=== PATIENT | female | born 1975 | race Caucasian/White ===

== ENCOUNTER 2022-07-25 11:00 | Inpatient (IN) ==
--- NOTE | 2022-07-25 11:17 | DR.GENAD ---
HPI Time Seen Time Seen by Provider: 07/25/22 11:17 PCP Primary Care Physician: TL JONES PA-C Complaint/Symptoms Chief Complaint Doctors Comments: 46 y/o female presents for evlauation. [place] constipated this am, used an enema. Moved her bowels a bit, but had sudden, severe pain of the perineal region, + associated with R labial swelling. Pain is sharp, constant, dies not radiate. + worse with palpation, movement. Nothing makes it better. Denies recent illness. No fever, URI symptoms, bladder complaints. + nausea, no vomiting. Chief Complaint:: PT C/O CHRONIC CONSTIPATION. LAST BM WAS ON SUNDAY. PT STATES THAT SHE GAVE HERSELF A FLEETS ENEMA THIS MORNING AROUND 8AM AND DID HAVE A VERY SMALL BM BUT AFTER THIS SHE FELT LIKE SHE HAD A SUDDEN ONSET OF SEVERE SWELLING AND PAIN INTO HER RECTUM AND VAGINAL AREA. PT STATES THAT HER PAIN IS SO SEVERE THAT SHE CAN'T CLOSE HER LEGS OR SIT DOWN. COVID-19 Coronavirus risk:travel/contact w/high risk person: No Has patient experienced Coronavirus symptoms: No Nurses notes reviewed Nurses Notes Review: Yes Source History Provided: Patient Mode of Arrival Mode of Arrival: Ambulatory Timing Onset of Chief Complaint: 07/25/22 PMH PMH Past Medical History: Yes Past Medical History: Diabetes Past Surgical History: Yes Surgical History: Cholecystectomy Past Surgical History Comment: UTERINE ABLATION, TUBAL LIGATION Family History History of Family Medical Conditions: Yes Family Medical History: Diabetes Mellitus and Hypertension Social History Does patient currently use any type of tobacco product: No Have you used tobacco products in the last 12 months: No Type of Tobacco Use: None Does any household member use tobacco: No Alcohol Use: None Do you use any recreational Drugs:: No Lives With: Family Lives Where: Home Travel Risk Coronavirus risk:travel/contact w/high risk person: No Has patient experienced Coronavirus symptoms: No Infectious screening In the last 2 months have you had wt loss of >10#?: NO Have you had fever, night sweats or hemotysis?: No Have you traveled outside the country in the last 6 months?: No Isolation: Standard ROS Review of Systems Constitutional: No Symptoms Reported Eyes: No Symptoms Reported ENTM: No Symptoms Reported Respiratoy: No Symptoms Reported Cardiovascular: No Symptoms Reported Gastrointestinal/Abdominal: Nausea Genitourinary: No Symptoms Reported Neurological: No Symptoms Reported Musculoskeletal: No Symptoms Reported Integumentary: No Symptoms Reported Hematologic/Lymphatic: No Symptoms Reported Psychiatric: No Symptoms Reported All Other Systems: Reviewed and Negative PE Vital Signs Vitals: Temperature 98.1 F Pulse Rate 132 Respiratory Rate 20 Blood Pressure [Right Arm] 122/74 Blood Pressure 112/77 O2 Sat by Pulse Oximetry 100 General General Appearance: Alert and Other (appears uncomfortable.) Eyes Eye exam: PERRL and EOMI Neck Neck Exam: Normal Inspection Respiratory Respiratory Exam: Normal Lung Sounds Bilat; negative Accessory Muscle Use or Respiratory Distress Cardiovascular Cardiovascular Exam: Regular Rate, Normal Rhythm and Normal Heart Sounds Abdominal Exam Abdominal Exam: Normal Bowel Sounds and Soft; negative Tenderness Extremities Extremities Exam: Normal Inspection; negative Edema Back Back Exam: Normal Inspection Neurologic Neurological Exam: Alert, Oriented X3 and CN II-XII Intact; negative Motor Sensory Deficit Skin Skin Exam: Warm and Dry Other Exam Other Exam: External genitalia - + marked edema pf the R labial majora, with tenderness of the perineum. Rectal - + ring of small ext hemorrhoids, + rectal impaction at fingertip, unable to manually remove. COURSE Treatment Treatment: 46 y/o female, felt constipated. Took an enema, tried to move bowels. + sudden R labial swelling, perineal discomfort. W/u initiated. 1345 - WBC elev ated to [address] abd/pelvis shows rectal impaction to be present. 1432 - CT c/w proctitis. Rectal exam - can barely reach impaction with finger, unable to manually disimpact. Discussed with surgery, Dr Baumann. He will consult on pt, may have to take to OR for disimpaction. Will place on IV antibiotics, admit to medicine (note: pt's medical provider does not admit here), and consult with Dr Baumann. ROR Labs Reviewed Laboratory Results Reviewed?: Yes Result Diagrams: 07/25/22 11:38 07/25/22 11:38 Laboratory: WBC 16.4 X10^3/uL (3.6-10.0) H 07/25/22 11:38 RBC 4.87 X10^6/uL (3.5-5.4) 07/25/22 11:38 Hgb 15.3 g/dL (12.0-16.0) 07/25/22 11:38 Hct 44.6 % (36.0-47.0) 07/25/22 11:38 MCV 91.5 fL (80.0-100.0) 07/25/22 11:38 MCH 31.4 pg (27.0-34.0) 07/25/22 11:38 MCHC 34.3 g/dL (33.0-35.0) 07/25/22 11:38 RDW 13.2 % (11.6-16.5) 07/25/22 11:38 Plt Count 296 X10^3/uL (150.0-450.0) 07/25/22 11:38 Plt Count Comment Adequate (ADEQUATE) 07/25/22 11:38 MPV 7.3 fL (7.4-11.0) L 07/25/22 11:38 Neut % (Auto) 92.7 % (42.0-75.0) H 07/25/22 11:38 Lymph % (Auto) 4.2 % (21.0-51.0) L 07/25/22 11:38 [place] % (Auto) 2.8 % (0.0-13.0) 07/25/22 11:38 Eos % (Auto) 0.2 % (0.9-2.9) L 07/25/22 11:38 Baso % (Auto) 0.1 % (0.2-1.0) L 07/25/22 11:38 Neut # (Auto) 15.2 x10^3/uL (2.2-4.8) H 07/25/22 11:38 Lymph # (Auto) 0.7 X10^3/uL (1.3-2.9) L 07/25/22 11:38 [place] # (Auto) 0.5 x10^3/uL (0.3-0.8) 07/25/22 11:38 Eos # (Auto) 0.0 x10^3/uL (0.0-0.2) 07/25/22 11:38 Baso # (Auto) 0.0 X10^3/uL (0.0-0.1) 07/25/22 11:38 Absolute Nucleated RBC 0.0 /100WBC 07/25/22 11:38 Total Counted 100 07/25/22 11:38 Neutrophils % (Manual) 98 % (39-76) H 07/25/22 11:38 Lymphocytes % (Manual) 2 % (13-43) L 07/25/22 11:38 Plt Morphology Comment Normal (NORMAL) 07/25/22 11:38 RBC Morphology Normal (NORMAL) 07/25/22 11:38 Sodium 140 mmol/L (136-145) 07/25/22 11:38 Corrected Sodium 142 mmol/L (136-145) 07/25/22 11:38 Potassium 3.2 mmol/L (3.5-5.1) L 07/25/22 11:38 Chloride 102 mmol/L (98-107) 07/25/22 11:38 Carbon Dioxide 29.1 mmol/L (21-32) 07/25/22 11:38 BUN 14 mg/dL (7-18) 07/25/22 11:38 Creatinine 0.73 mg/dL (0.55-1.02) 07/25/22 11:38 Est GFR (MDRD) Af Amer > 60 (>60) 07/25/22 11:38 Est GFR (MDRD) Non-Af > 60 (>60) 07/25/22 11:38 Glucose 164 mg/dL (65-99) H 07/25/22 11:38 Calcium 8.3 mg/dL (8.5-10.1) L 07/25/22 11:38 Corrected Calcium TNP 07/25/22 11:38 Total Bilirubin 0.40 mg/dL (0.2-1.0) 07/25/22 11:38 AST 25 Units/L (15-37) 07/25/22 11:38 ALT 53 Units/L (12-78) 07/25/22 11:38 Alkaline Phosphatase 65 Units/L (46-116) 07/25/22 11:38 Total Protein 7.6 g/dL (6.4-8.2) 07/25/22 11:38 Albumin 4.2 g/dL (3.4-5.0) 07/25/22 11:38 Globulin 3.4 g/dL (2.5-4.5) 07/25/22 11:38 Albumin/Globulin Ratio 1.2 Ratio (1.1-2.1) 07/25/22 11:38 Opioid Opioid Risk Tool Age (Rei box if 16-45): No History of Preadolescent Sexual Abuse: No Total: 0 Total Score Risk Category: Low Risk Copyright: Michele VAUGHN predicting aberrant behaviors Discharge Plan Diagnosis Discharge Problem: Acute proctitis, Fecal impaction in rectum Discharge Plan Patient Disposition: 09 ADMITTED INPATIENT Condition: Stable Orders to Discharge Patient Discharge Orders: Transfer (Routine); Ordered 07/25/22 Ordered By: Alexander Guevara
[2022-07-25] MEDS ORDERED: NS 1,000 ML IV 1,000 ML IV ONE (11:29)
[2022-07-25] MEDS ORDERED: TORADOL 30 MG VIAL IVP ONE (11:29)
[2022-07-25] MEDS ORDERED: ZOFRAN INJ 4 MG VIAL IVP ONE ×2 (11:30→14:03)
[2022-07-25] MEDS ORDERED: TORADOL 30 MG VIAL ONE (11:30)
[2022-07-25] MEDS ORDERED: ZOFRAN INJ 4 MG VIAL ONE ×2 (11:31→13:59)
[2022-07-25] MEDS ORDERED: NS 1,000 ML IV 1,000 ML ONE (11:32)
[2022-07-25 11:53] LABS: BASOPHILS % (AUTO) 0.1 % (0.2-1.0); EOSINOPHILS % (AUTO) 0.2 % (0.9-2.9); HEMATOCRIT 44.6 % (36.0-47.0); HEMOGLOBIN 15.3 g/dL (12.0-16.0); LYMPHOCYTES # (AUTO) 0.7 X10^3/uL (1.3-2.9); LYMPHOCYTES % (AUTO) 4.2 % (21.0-51.0); MEAN CORPUSCULAR HEMOGLOBIN 31.4 pg (27.0-34.0); MEAN CORPUSCULAR HGB CONC 34.3 g/dL (33.0-35.0); MEAN CORPUSCULAR VOLUME 91.5 fL (80.0-100.0); MEAN PLATELET VOLUME 7.3 fL (7.4-11.0); MONOCYTES # (AUTO) 0.5 x10^3/uL (0.3-0.8); MONOCYTES % (AUTO) 2.8 % (0.0-13.0); NEUTROPHILS # (AUTO) 15.2 x10^3/uL (2.2-4.8); NEUTROPHILS % (AUTO) 92.7 % (42.0-75.0); PLATELET COUNT 296 X10^3/uL (150.0-450.0); RED BLOOD COUNT 4.87 X10^6/uL (3.5-5.4); RED CELL DISTRIBUTION WIDTH 13.2 % (11.6-16.5); WHITE BLOOD COUNT 16.4 X10^3/uL (3.6-10.0)
[2022-07-25 11:59] LABS: ALANINE AMINOTRANSFERASE 53 Units/L (12-78); ALBUMIN 4.2 g/dL (3.4-5.0); ALKALINE PHOSPHATASE 65 Units/L (46-116); ASPARTATE AMINO TRANSFERASE 25 Units/L (15-37); BLOOD UREA NITROGEN 14 mg/dL (7-18); CALCIUM 8.3 mg/dL (8.5-10.1); CARBON DIOXIDE 29.1 mmol/L (21-32); CHLORIDE 102 mmol/L (98-107); COR NA(FOR HYPERGLY) 142 mmol/L (136-145); CREATININE 0.73 mg/dL (0.55-1.02); GLUCOSE 164 mg/dL (65-99); POTASSIUM 3.2 mmol/L (3.5-5.1); SODIUM 140 mmol/L (136-145); TOTAL PROTEIN 7.6 g/dL (6.4-8.2); eGFR NON BLACK RACES > 60 (>60)
[2022-07-25 12:19] LABS: PLATELET MORPHOLOGY COMMENT NORMAL (NORMAL)
[2022-07-25] MEDS ORDERED: MORPHINE SULFATE INJ 4 MG IVP ONE (13:53)
[2022-07-25] MEDS ORDERED: MORPHINE SULFATE INJ 4 MG ONE (13:56)
--- NOTE | 2022-07-25 14:22 | CT ---
HISTORYPELVIC PAIN previous tubal ligationSTUDYABDOMEN/PELVIS WITH CONCOMPARISONNoneTECHNIQUEMultiple CT axial images of the abdomen and pelvis were obtained with IV contrast. Coronal and sagittal images were reconstructed. Dose reduction techniques included Automated Exposure Control (AEC) and adjustment of mA and kV.FINDINGSThe rectal wall is thickening in there is a large amount of perirectal edema in the presacral space and the ischiorectal fossa. Findings suggest proctitis. No fluid collection to suggest an abscess.I believe the uterus in the bladder which are in this same vicinity are normal. There are surgical clips from bilateral tubal ligation.The bowel is not dilated. There is no wall thickening in the bowel or edema around the bowel. The appendix is normal in size with no inflammation around it. No evidence of appendicitis. There is no significant diverticular disease.The lung bases are clear. Heart size is normal.The liver is normal in size and configuration. Surgical clips are present in the gallbladder fossa from a cholecystectomy. The spleen is normal in size and shape.The adrenal glands are normal. The pancreas is normal.Renal enhancement is symmetric with no solid mass. There is no hydronephrosis or significant perirenal edema. The ureters are not dilated.No significant bone abnormality. Tiny umbilical hernia contains fat.IMPRESSION1. Findings suggesting acute proctitisElectronically signed by: Clayton Greco (Jul 25, 2022 14:20:43)
[2022-07-25] MEDS ORDERED: FLAGYL IV PREMIX 500 MG BAG 500 MG/100 ML BAG IV ONE ×2 (15:11→15:21)
[2022-07-25] MEDS ORDERED: LEVAQUIN PREMIX IV 750 MG 750 MG/150 ML BAG IV ONE ×2 (15:11→15:21)
[2022-07-25] MEDS ORDERED: MORPHINE SULFATE INJ 4 MG IVP PRN (16:54)
[2022-07-25] MEDS ORDERED: FLAGYL IV PREMIX 500 MG BAG 500 MG/100 ML BAG IV SCH (16:54)
[2022-07-25 17:16] VITALS: BMI 25.0
[2022-07-25] MEDS: D5 1/2 NS 1,000 ML 1,000 ML IV SCH (17:52)
[2022-07-25] MEDS ORDERED: POTASSIUM CHL 40 MEQ/NS 0.45% 500 ML IV PRN (18:55)
[2022-07-25] MEDS ORDERED: POTASSIUM CHLORIDE LIQ 20 MEQ UDC PO PRN (18:55)
[2022-07-25] MEDS ORDERED: MAGNESIUM SULFATE 1 GRAM/100 mL PREMIX 1 G/100 ML BAG IV PRN (18:55)
[2022-07-25] MEDS ORDERED: MICRO K EXTEN CAP 10 MEQ PO PRN (18:55)
[2022-07-25] MEDS ORDERED: KLOR-CON PO PRN (18:55)
[2022-07-25] MEDS ORDERED: POTASSIUM CHL 60 MEQ/NS 0.45% 500 ML IV PRN (18:55)
[2022-07-25] MEDS: FLAGYL IV PREMIX 500 MG BAG 500 MG/100 ML BAG IV SCH (21:39)
[2022-07-25] MEDS: AMBIEN PO PRN (21:40)
[2022-07-25] MEDS: K-DUR TAB 20 MEQ PO PRN (21:40)
[2022-07-25] MEDS: ZOFRAN INJ 4 MG VIAL IVP PRN (21:40)
[2022-07-25] MEDS: MORPHINE SULFATE INJ 2 MG INJ IVP PRN (23:03)
[2022-07-26] MEDS: D5 1/2 NS 1,000 ML 1,000 ML IV SCH ×5 (01:59→22:47)
[2022-07-26] MEDS: MORPHINE SULFATE INJ 2 MG INJ IVP PRN (03:17)
[2022-07-26] MEDS: ZOFRAN INJ 4 MG VIAL IVP PRN ×2 (03:17→13:10)
[2022-07-26] MEDS: FLAGYL IV PREMIX 500 MG BAG 500 MG/100 ML BAG IV SCH ×3 (06:07→21:44)
[2022-07-26 06:11] LABS: BASOPHILS % (AUTO) 0.1 % (0.2-1.0); HEMATOCRIT 36.2 % (36.0-47.0); LYMPHOCYTES # (AUTO) 1.3 X10^3/uL (1.3-2.9); LYMPHOCYTES % (AUTO) 9.2 % (21.0-51.0); MEAN CORPUSCULAR HEMOGLOBIN 31.5 pg (27.0-34.0); MEAN CORPUSCULAR HGB CONC 34.5 g/dL (33.0-35.0); MEAN CORPUSCULAR VOLUME 91.5 fL (80.0-100.0); MEAN PLATELET VOLUME 7.9 fL (7.4-11.0); MONOCYTES # (AUTO) 0.9 x10^3/uL (0.3-0.8); MONOCYTES % (AUTO) 6.9 % (0.0-13.0); NEUTROPHILS # (AUTO) 11.4 x10^3/uL (2.2-4.8); NEUTROPHILS % (AUTO) 83.8 % (42.0-75.0); PLATELET COUNT 246 X10^3/uL (150.0-450.0); RED BLOOD COUNT 3.96 X10^6/uL (3.5-5.4); RED CELL DISTRIBUTION WIDTH 12.9 % (11.6-16.5); WHITE BLOOD COUNT 13.6 X10^3/uL (3.6-10.0)
[2022-07-26 06:17] LABS: ALANINE AMINOTRANSFERASE 59 Units/L (12-78); ALKALINE PHOSPHATASE 45 Units/L (46-116); ASPARTATE AMINO TRANSFERASE 24 Units/L (15-37); BLOOD UREA NITROGEN 12 mg/dL (7-18); CALCIUM 7.8 mg/dL (8.5-10.1); CARBON DIOXIDE 29.9 mmol/L (21-32); CHLORIDE 104 mmol/L (98-107); COR CA(FOR HYPOALB) 8.6 mg/dL (8.5-10.1); COR NA(FOR HYPERGLY) 138 mmol/L (136-145); CREATININE 0.66 mg/dL (0.55-1.02); GLUCOSE 119 mg/dL (65-99); HEMOGLOBIN 12.5 g/dL (12.0-16.0); POTASSIUM 3.5 mmol/L (3.5-5.1); SODIUM 138 mmol/L (136-145); eGFR NON BLACK RACES > 60 (>60)
[2022-07-26] MEDS ORDERED: MINERAL OIL RECTAL NR (08:00)
[2022-07-26] MEDS: LEVAQUIN PREMIX IV 750 MG 750 MG/150 ML BAG IV SCH (08:42)
[2022-07-26] MEDS ORDERED: NS 500 ML IV 500 ML IV ONE (10:38)
[2022-07-26] MEDS ORDERED: DIPRIVAN VIAL 20 ML ONE (10:43)
[2022-07-26] MEDS ORDERED: ZOFRAN INJ 4 MG VIAL ONE (10:44)
--- NOTE | 2022-07-26 12:58 | DR.H&P ---
H&P History & Physical for Day of: H&P Date: 07/25/22 Chief Complaint Chief Complaint: left finger pain, swelling Allergies Allergies Allergy/AdvReac Type Severity Reaction Status Date / Time No Known Drug Allergies Allergy Verified 11/16/20 10:22 History of Present Illness History of Present Illness: Pt is a 46 year old female past medical history of DMT2, presenting with bowel impaction and acute proctitis. Pt reports that she has bowel movements every 2-3 days that is common for her. This morning when she tried to have a bowel movement and felt severely constipated and could not. Labs/imaging: Wbc 16.4, Hgb 15.3, Plt 296, Na 140, K 3.2, Creatinine 0.73, Gl ucose 164, CT abdomen and pelvis was obtained that revealed: 1. Findings suggesting acute proctitis. Pt was admitted and started on IVF D5 1/2 NS@ 125ml/h, IV antibiotics: IV Levaquin 750mg daily. General surgery-Dr Baumann consulted, unsuccessful in disimpaction due to pain. He will attempt in the morning under sedation. Resume home medications. NPO after midnight. Continue to closely monitor and follow up labs in the morning. Past Medical History Past Medical History: Diabetes Past Surgical History Surgical History: Cholecystectomy Family History Family Medical History: Diabetes Mellitus Social History Does patient currently use any type of tobacco product: No Have you used tobacco products in the last 12 months: No Type of Tobacco Use: None Does any household member use tobacco: No Alcohol Use: None Drug Use: None Medications Home Medications: No Known Drug Allergies Allergy (Verified 11/16/20 10:22) CONTINUE taking the following medications duloxetine 60 mg capsule,delayed release (Cymbalta) 60 mg PO HS PRN 07/26/22 [History] eszopiclone 3 mg tablet 1 tab PO QPM PRN 07/26/22 [History] semaglutide 1 mg/dose (4 mg/3 mL) subcutaneous pen injector (Ozempic) 1 mg subcut QWEEK 07/26/22 [History] Labs Result Diagrams: 07/26/22 05:15 07/26/22 05:15 Labs: Laboratory WBC 13.6 X10^3/uL (3.6-10.0) H 07/26/22 05:15 RBC 3.96 X10^6/uL (3.5-5.4) 07/26/22 05:15 Hgb 12.5 g/dL (12.0-16.0) D 07/26/22 05:15 Hct 36.2 % (36.0-47.0) 07/26/22 05:15 MCV 91.5 fL (80.0-100.0) 07/26/22 05:15 MCH 31.5 pg (27.0-34.0) 07/26/22 05:15 MCHC 34.5 g/dL (33.0-35.0) 07/26/22 05:15 RDW 12.9 % (11.6-16.5) 07/26/22 05:15 Plt Count 246 X10^3/uL (150.0-450.0) 07/26/22 05:15 Plt Count Comment Adequate (ADEQUATE) 07/25/22 11:38 MPV 7.9 fL (7.4-11.0) 07/26/22 05:15 Neut % (Auto) 83.8 % (42.0-75.0) H 07/26/22 05:15 Lymph % (Auto) 9.2 % (21.0-51.0) L 07/26/22 05:15 [place] % (Auto) 6.9 % (0.0-13.0) 07/26/22 05:15 Eos % (Auto) 0.0 % (0.9-2.9) L 07/26/22 05:15 Baso % (Auto) 0.1 % (0.2-1.0) L 07/26/22 05:15 Neut # (Auto) 11.4 x10^3/uL (2.2-4.8) H 07/26/22 05:15 Lymph # (Auto) 1.3 X10^3/uL (1.3-2.9) 07/26/22 05:15 [place] # (Auto) 0.9 x10^3/uL (0.3-0.8) H 07/26/22 05:15 Eos # (Auto) 0.0 x10^3/uL (0.0-0.2) 07/26/22 05:15 Baso # (Auto) 0.0 X10^3/uL (0.0-0.1) 07/26/22 05:15 Absolute Nucleated RBC 0.0 /100WBC 07/26/22 05:15 Total Counted 100 07/25/22 11:38 Neutrophils % (Manual) 98 % (39-76) H 07/25/22 11:38 Lymphocytes % (Manual) 2 % (13-43) L 07/25/22 11:38 Plt Morphology Comment Normal (NORMAL) 07/25/22 11:38 RBC Morphology Normal (NORMAL) 07/25/22 11:38 Sodium 138 mmol/L (136-145) 07/26/22 05:15 Corrected Sodium 138 mmol/L (136-145) 07/26/22 05:15 Potassium 3.5 mmol/L (3.5-5.1) 07/26/22 05:15 Chloride 104 mmol/L (98-107) 07/26/22 05:15 Carbon Dioxide 29.9 mmol/L (21-32) 07/26/22 05:15 BUN 12 mg/dL (7-18) 07/26/22 05:15 Creatinine 0.66 mg/dL (0.55-1.02) 07/26/22 05:15 Est GFR (MDRD) Af Amer > 60 (>60) 07/26/22 05:15 Est GFR (MDRD) Non-Af > 60 (>60) 07/26/22 05:15 Glucose 119 mg/dL (65-99) H 07/26/22 05:15 POC Glucose (mg/dL) 112 mg/dL (65-99) H 07/26/22 05:19 Calcium 7.8 mg/dL (8.5-10.1) L 07/26/22 05:15 Corrected Calcium 8.6 mg/dL (8.5-10.1) 07/26/22 05:15 Magnesium 2.0 mg/dL (2.0-2.9) 07/25/22 11:38 Total Bilirubin 0.50 mg/dL (0.2-1.0) 07/26/22 05:15 AST 24 Units/L (15-37) 07/26/22 05:15 ALT 59 Units/L (12-78) 07/26/22 05:15 Alkaline Phosphatase 45 Units/L (46-116) L 07/26/22 05:15 Total Protein 6.0 g/dL (6.4-8.2) L 07/26/22 05:15 Albumin 3.0 g/dL (3.4-5.0) L 07/26/22 05:15 Globulin 3.0 g/dL (2.5-4.5) 07/26/22 05:15 Albumin/Globulin Ratio 1.0 Ratio (1.1-2.1) L 07/26/22 05:15 Review of Systems Constitutional: No Symptoms Reported Eyes: No Symptoms Reported ENT: No Symptoms Reported Respiratory: No Symptoms Reported Cardiovascular: No Symptoms Reported Gastrointestinal: Abdominal Pain Genitourinary: No Symptoms Reported Musculoskeletal: No Symptoms Reported Skin: No Symptoms Reported Neurological: No Symptoms Reported Physical Exam Vital Signs: Temperature 99.3 F Pulse Rate [Left] 116 Pulse Rate 132 Respiratory Rate 18 Blood Pressure [Right Arm] 88/51 Blood Pressure 112/77 O2 Sat by Pulse Oximetry 96 Oriented: Normal Eyes: Normal Ear: Normal Nose: Normal Throat: Normal Respiratory: Clear Throughout Cardiovascular: Normal : Normal Auscultation: Bowel Sounds: Normal Palpation: Normal Tenderness: Normal and LLQ Skin: Normal Musculoskeletal: Normal Psychiatric: Normal Mood Description: Calm and Appropriate Affect: Normal Speech Pattern: Clear and Appropriate Assessment/Plan (1) Acute proctitis: Status: Acute Plan: IV antibiotics:Levaquin (2) Fecal impaction in rectum: Status: Acute Plan: General surgery following, plan for disimpaction Review H&P Reviewed: Yes Patient was examined?: Yes
--- NOTE | 2022-07-26 13:03 | PCM.PROG ---
Progress Note Progress Note for Day of Date of Exam: 07/26/22 Subjective Subjective: Pt is a 46 year old female past medical history of DMT2, admitted for fecal impaction and acute proctitis. This morning she is resting in bed. No acute events overnight and no change in symptoms. Labs/imaging: Wbc 13.6, Hgb 12.5, Plt 246, Na 138, K 3.5, Creatinine 0.66, Glucose 119, CT abdomen and pelvis was obtained that revealed: 1. Findings suggesting acute proctitis. Pt is currently receiving IVF D5 1/2 NS@ 125ml/h, IV antibiotics: IV Levaquin 750mg daily. General surgery-Dr Baumann consulted, plan for fecal disimpaction today under IV sedation. Pt is currently NPO. Continue to closely monitor and follow up labs in the morning. Past Medical Family Social History Allergies: Allergies No Known Drug Allergies Allergy (Verified 11/16/20 10:22) Review of Systems ROS: No change since H&P Vital Signs and I&O's Vital Signs: Temperature 98.2 F Pulse Rate [Left] 96 Pulse Rate 132 Respiratory Rate 18 Blood Pressure [Right Arm] 101/61 Blood Pressure 112/77 O2 Sat by Pulse Oximetry 99 Intake and Output: Intake & Output 07/23/22 07/24/22 07/25/22 07/26/22 23:59 23:59 23:59 23:59 Intake Total 563 / 563 1411 / 1411 Balance 563 / 563 1411 / 1411 Physical Exam Oriented: Normal Eyes: Normal Ear: Normal Nose: Normal Throat: Normal Respiratory: Normal Cardiovascular: Normal : Normal Auscultation: Bowel Sounds: Normal Palpation: Normal Tenderness: LLQ Skin: Normal Musculoskeletal: Normal Psychiatric: Normal Mood Description: Calm and Appropriate Affect: Normal Speech Pattern: Clear and Appropriate Laboratory and Diagnostics Result Diagrams: 07/26/22 05:15 07/26/22 05:15 Labs: Laboratory WBC 13.6 X10^3/uL (3.6-10.0) H 07/26/22 05:15 RBC 3.96 X10^6/uL (3.5-5.4) 07/26/22 05:15 Hgb 12.5 g/dL (12.0-16.0) D 07/26/22 05:15 Hct 36.2 % (36.0-47.0) 07/26/22 05:15 MCV 91.5 fL (80.0-100.0) 07/26/22 05:15 MCH 31.5 pg (27.0-34.0) 07/26/22 05:15 MCHC 34.5 g/dL (33.0-35.0) 07/26/22 05:15 RDW 12.9 % (11.6-16.5) 07/26/22 05:15 Plt Count 246 X10^3/uL (150.0-450.0) 07/26/22 05:15 Plt Count Comment Adequate (ADEQUATE) 07/25/22 11:38 MPV 7.9 fL (7.4-11.0) 07/26/22 05:15 Neut % (Auto) 83.8 % (42.0-75.0) H 07/26/22 05:15 Lymph % (Auto) 9.2 % (21.0-51.0) L 07/26/22 05:15 [place] % (Auto) 6.9 % (0.0-13.0) 07/26/22 05:15 Eos % (Auto) 0.0 % (0.9-2.9) L 07/26/22 05:15 Baso % (Auto) 0.1 % (0.2-1.0) L 07/26/22 05:15 Neut # (Auto) 11.4 x10^3/uL (2.2-4.8) H 07/26/22 05:15 Lymph # (Auto) 1.3 X10^3/uL (1.3-2.9) 07/26/22 05:15 [place] # (Auto) 0.9 x10^3/uL (0.3-0.8) H 07/26/22 05:15 Eos # (Auto) 0.0 x10^3/uL (0.0-0.2) 07/26/22 05:15 Baso # (Auto) 0.0 X10^3/uL (0.0-0.1) 07/26/22 05:15 Absolute Nucleated RBC 0.0 /100WBC 07/26/22 05:15 Total Counted 100 07/25/22 11:38 Neutrophils % (Manual) 98 % (39-76) H 07/25/22 11:38 Lymphocytes % (Manual) 2 % (13-43) L 07/25/22 11:38 Plt Morphology Comment Normal (NORMAL) 07/25/22 11:38 RBC Morphology Normal (NORMAL) 07/25/22 11:38 Sodium 138 mmol/L (136-145) 07/26/22 05:15 Corrected Sodium 138 mmol/L (136-145) 07/26/22 05:15 Potassium 3.5 mmol/L (3.5-5.1) 07/26/22 05:15 Chloride 104 mmol/L (98-107) 07/26/22 05:15 Carbon Dioxide 29.9 mmol/L (21-32) 07/26/22 05:15 BUN 12 mg/dL (7-18) 07/26/22 05:15 Creatinine 0.66 mg/dL (0.55-1.02) 07/26/22 05:15 Est GFR (MDRD) Af Amer > 60 (>60) 07/26/22 05:15 Est GFR (MDRD) Non-Af > 60 (>60) 07/26/22 05:15 Glucose 119 mg/dL (65-99) H 07/26/22 05:15 POC Glucose (mg/dL) 104 mg/dL (65-99) H 07/26/22 11:42 Calcium 7.8 mg/dL (8.5-10.1) L 07/26/22 05:15 Corrected Calcium 8.6 mg/dL (8.5-10.1) 07/26/22 05:15 Magnesium 1.9 mg/dL (2.0-2.9) L 07/26/22 05:15 Total Bilirubin 0.50 mg/dL (0.2-1.0) 07/26/22 05:15 AST 24 Units/L (15-37) 07/26/22 05:15 ALT 59 Units/L (12-78) 07/26/22 05:15 Alkaline Phosphatase 45 Units/L (46-116) L 07/26/22 05:15 Total Protein 6.0 g/dL (6.4-8.2) L 07/26/22 05:15 Albumin 3.0 g/dL (3.4-5.0) L 07/26/22 05:15 Globulin 3.0 g/dL (2.5-4.5) 07/26/22 05:15 Albumin/Globulin Ratio 1.0 Ratio (1.1-2.1) L 07/26/22 05:15 Plan (1) Acute proctitis: Status: Acute Plan: IV antibiotics:Levaquin (2) Fecal impaction in rectum: Status: Acute Plan: General surgery following, plan for disimpaction (3) Type 2 diabetes mellitus: Status: Chronic
[2022-07-26] MEDS ORDERED: NS 250 ML IV 250 ML IV ONE (13:41)
[2022-07-26] MEDS: K-RIDER 10 MEQ/NS 100 ML 10 MEQ/100 ML BAG IV PRN ×2 (13:48→14:58)
[2022-07-26] MEDS ORDERED: TYLENOL 325 MG TAB PO PRN (19:16)
[2022-07-26] MEDS: AMBIEN PO PRN (20:18)
[2022-07-27] MEDS: D5 1/2 NS 1,000 ML 1,000 ML IV SCH ×3 (05:07→17:29)
[2022-07-27] MEDS: FLAGYL IV PREMIX 500 MG BAG 500 MG/100 ML BAG IV SCH ×3 (05:07→22:13)
[2022-07-27 06:07] LABS: BASOPHILS % (AUTO) 0.2 % (0.2-1.0); EOSINOPHILS # (AUTO) 0.1 x10^3/uL (0.0-0.2); EOSINOPHILS % (AUTO) 0.8 % (0.9-2.9); HEMATOCRIT 31.5 % (36.0-47.0); HEMOGLOBIN 10.9 g/dL (12.0-16.0); LYMPHOCYTES # (AUTO) 1.3 X10^3/uL (1.3-2.9); LYMPHOCYTES % (AUTO) 12.7 % (21.0-51.0); MEAN CORPUSCULAR HGB CONC 34.8 g/dL (33.0-35.0); MEAN CORPUSCULAR VOLUME 91.9 fL (80.0-100.0); MEAN PLATELET VOLUME 7.4 fL (7.4-11.0); MONOCYTES # (AUTO) 0.6 x10^3/uL (0.3-0.8); MONOCYTES % (AUTO) 5.6 % (0.0-13.0); NEUTROPHILS % (AUTO) 80.7 % (42.0-75.0); PLATELET COUNT 228 X10^3/uL (150.0-450.0); RED BLOOD COUNT 3.42 X10^6/uL (3.5-5.4); RED CELL DISTRIBUTION WIDTH 13.2 % (11.6-16.5)
[2022-07-27 06:22] LABS: ALANINE AMINOTRANSFERASE 42 Units/L (12-78); ALBUMIN 2.7 g/dL (3.4-5.0); ALKALINE PHOSPHATASE 47 Units/L (46-116); ASPARTATE AMINO TRANSFERASE 15 Units/L (15-37); BLOOD UREA NITROGEN 4 mg/dL (7-18); CALCIUM 8.2 mg/dL (8.5-10.1); CARBON DIOXIDE 28.8 mmol/L (21-32); CHLORIDE 108 mmol/L (98-107); COR CA(FOR HYPOALB) 9.2 mg/dL (8.5-10.1); CREATININE 0.62 mg/dL (0.55-1.02); GLUCOSE 100 mg/dL (65-99); POTASSIUM 3.7 mmol/L (3.5-5.1); SODIUM 140 mmol/L (136-145); TOTAL PROTEIN 5.8 g/dL (6.4-8.2); eGFR NON BLACK RACES > 60 (>60)
--- NOTE | 2022-07-27 08:26 | DR.PROGNOT ---
HOSPITAL PROGRESS NOTE Progress Note for Day of: Progress Note Date: 07/27/22 Chief Complaint Chief Complaint: Had several large bowel movements last night. In general patient is feeling better with no significant lower abdominal pain. No rectal bleeding Past Medical Family Social History Past Med/Fam/Surg Hx: No changes since H&P Allergies: Allergies No Known Drug Allergies Allergy (Verified 11/16/20 10:22) Review Of Systems ROS: No change since H&P Vital Signs Vital Signs: Temperature 98.9 F Pulse Rate [Left] 89 Pulse Rate 132 Respiratory Rate 18 Blood Pressure [Right Arm] 93/57 Blood Pressure 112/77 O2 Sat by Pulse Oximetry 100 Physical Exam Oriented: Normal Eyes: Normal Ear: Normal Nose: Normal Throat: Normal Respiratory: Normal Cardiovascular: Normal : Normal GI:Auscultation: Normal GI:Palpation: Normal GI: Tenderness: Normal (Soft and flat abdomen without significant tenderness, bowel sounds present) and LLQ Skin: Normal Musculoskeletal: Normal Psychiatric: Normal Mood Description: Calm and Appropriate Affect: Normal Speech Pattern: Clear and Appropriate Laboratory and Diagnostics Result Diagrams: 07/27/22 05:37 07/27/22 05:37 Labs: Laboratory WBC 10.0 X10^3/uL (3.6-10.0) 07/27/22 05:37 RBC 3.42 X10^6/uL (3.5-5.4) L 07/27/22 05:37 Hgb 10.9 g/dL (12.0-16.0) L 07/27/22 05:37 Hct 31.5 % (36.0-47.0) L 07/27/22 05:37 MCV 91.9 fL (80.0-100.0) 07/27/22 05:37 MCH 32.0 pg (27.0-34.0) 07/27/22 05:37 MCHC 34.8 g/dL (33.0-35.0) 07/27/22 05:37 RDW 13.2 % (11.6-16.5) 07/27/22 05:37 Plt Count 228 X10^3/uL (150.0-450.0) 07/27/22 05:37 Plt Count Comment Adequate (ADEQUATE) 07/25/22 11:38 MPV 7.4 fL (7.4-11.0) 07/27/22 05:37 Neut % (Auto) 80.7 % (42.0-75.0) H 07/27/22 05:37 Lymph % (Auto) 12.7 % (21.0-51.0) L 07/27/22 05:37 [place] % (Auto) 5.6 % (0.0-13.0) 07/27/22 05:37 Eos % (Auto) 0.8 % (0.9-2.9) L 07/27/22 05:37 Baso % (Auto) 0.2 % (0.2-1.0) 07/27/22 05:37 Neut # (Auto) 8.0 x10^3/uL (2.2-4.8) H 07/27/22 05:37 Lymph # (Auto) 1.3 X10^3/uL (1.3-2.9) 07/27/22 05:37 [place] # (Auto) 0.6 x10^3/uL (0.3-0.8) 07/27/22 05:37 Eos # (Auto) 0.1 x10^3/uL (0.0-0.2) 07/27/22 05:37 Baso # (Auto) 0.0 X10^3/uL (0.0-0.1) 07/27/22 05:37 Absolute Nucleated RBC 0.0 /100WBC 07/27/22 05:37 Total Counted 100 07/25/22 11:38 Neutrophils % (Manual) 98 % (39-76) H 07/25/22 11:38 Lymphocytes % (Manual) 2 % (13-43) L 07/25/22 11:38 Plt Morphology Comment Normal (NORMAL) 07/25/22 11:38 RBC Morphology Normal (NORMAL) 07/25/22 11:38 Sodium 140 mmol/L (136-145) 07/27/22 05:37 Corrected Sodium TNP 07/27/22 05:37 Potassium 3.7 mmol/L (3.5-5.1) 07/27/22 05:37 Chloride 108 mmol/L (98-107) H 07/27/22 05:37 Carbon Dioxide 28.8 mmol/L (21-32) 07/27/22 05:37 BUN 4 mg/dL (7-18) L 07/27/22 05:37 Creatinine 0.62 mg/dL (0.55-1.02) 07/27/22 05:37 Est GFR (MDRD) Af Amer > 60 (>60) 07/27/22 05:37 Est GFR (MDRD) Non-Af > 60 (>60) 07/27/22 05:37 Glucose 100 mg/dL (65-99) H 07/27/22 05:37 POC Glucose (mg/dL) 105 mg/dL (65-99) H 07/27/22 05:03 Calcium 8.2 mg/dL (8.5-10.1) L 07/27/22 05:37 Corrected Calcium 9.2 mg/dL (8.5-10.1) 07/27/22 05:37 Magnesium 1.9 mg/dL (2.0-2.9) L 07/26/22 05:15 Total Bilirubin 0.30 mg/dL (0.2-1.0) 07/27/22 05:37 AST 15 Units/L (15-37) 07/27/22 05:37 ALT 42 Units/L (12-78) 07/27/22 05:37 Alkaline Phosphatase 47 Units/L (46-116) 07/27/22 05:37 Total Protein 5.8 g/dL (6.4-8.2) L 07/27/22 05:37 Albumin 2.7 g/dL (3.4-5.0) L 07/27/22 05:37 Globulin 3.1 g/dL (2.5-4.5) 07/27/22 05:37 Albumin/Globulin Ratio 0.9 Ratio (1.1-2.1) L 07/27/22 05:37 Assessment and Plan 1: Resolved fecal impaction, s/p disimpaction in the endoscopy suite. 2: Chronic constipation. 3: Acute proctitis secondary to the impaction. Patient could be discharged on Flagyl 500 mg every 8 hours, will follow her in 2 weeks to arrange for future colonoscopy. Problem Patient Problems: Patient Problems (Updated 07/26/22 @ 13:03 by Shayne Griffith) Acute proctitis (Acute) K62.89 Fecal impaction in rectum (Acute) K56.41
[2022-07-27] MEDS: LEVAQUIN PREMIX IV 750 MG 750 MG/150 ML BAG IV SCH (08:27)
--- NOTE | 2022-07-27 12:36 | PCM.PROG ---
Progress Note Progress Note for Day of Date of Exam: 07/27/22 Subjective Subjective: Pt is a 46 year old female past medical history of DMT2, admitted for fecal impaction and acute proctitis. This morning she is resting in bed and is feeling significantly better. She did have disimpaction procedure yesterday. No acute events overnight. Labs/imaging: Wbc 10, Hgb 10.9, Plt 228, Na 140, K 3.7, Creatinine 0.62, Glucose 100. Pt is currently receiving IVF D5 1/2 NS@ 125ml/h, IV antibiotics: IV Levaquin 750mg daily, IV Flagyl 500mg TID, General surgery-Dr Baumann following. Diet has been resumed. Continue to closely monitor and follow up labs in the morning. Past Medical Family Social History Past Med/Fam/Surg Hx: No changes since H&P Allergies: Allergies No Known Drug Allergies Allergy (Verified 11/16/20 10:22) Review of Systems ROS: No change since H&P Vital Signs and I&O's Vital Signs: Temperature 98.9 F Pulse Rate [Left] 89 Pulse Rate 132 Respiratory Rate 18 Blood Pressure [Right Arm] 93/57 Blood Pressure 112/77 O2 Sat by Pulse Oximetry 100 Intake and Output: Intake & Output 07/24/22 07/25/22 07/26/22 07/27/22 23:59 23:59 23:59 23:59 Intake Total 563 / 563 3931 / 3931 1390 / 1390 Balance 563 / 563 3931 / 3931 1390 / 1390 Physical Exam Oriented: Normal Eyes: Normal Ear: Normal Nose: Normal Throat: Normal Respiratory: Normal Cardiovascular: Normal : Normal Auscultation: Bowel Sounds: Normal Palpation: Normal Tenderness: Normal Skin: Normal Musculoskeletal: Normal Psychiatric: Normal Mood Description: Calm and Appropriate Affect: Normal Speech Pattern: Clear and Appropriate Laboratory and Diagnostics Result Diagrams: 07/27/22 05:37 07/27/22 05:37 Labs: Laboratory WBC 10.0 X10^3/uL (3.6-10.0) 07/27/22 05:37 RBC 3.42 X10^6/uL (3.5-5.4) L 07/27/22 05:37 Hgb 10.9 g/dL (12.0-16.0) L 07/27/22 05:37 Hct 31.5 % (36.0-47.0) L 07/27/22 05:37 MCV 91.9 fL (80.0-100.0) 07/27/22 05:37 MCH 32.0 pg (27.0-34.0) 07/27/22 05:37 MCHC 34.8 g/dL (33.0-35.0) 07/27/22 05:37 RDW 13.2 % (11.6-16.5) 07/27/22 05:37 Plt Count 228 X10^3/uL (150.0-450.0) 07/27/22 05:37 Plt Count Comment Adequate (ADEQUATE) 07/25/22 11:38 MPV 7.4 fL (7.4-11.0) 07/27/22 05:37 Neut % (Auto) 80.7 % (42.0-75.0) H 07/27/22 05:37 Lymph % (Auto) 12.7 % (21.0-51.0) L 07/27/22 05:37 [place] % (Auto) 5.6 % (0.0-13.0) 07/27/22 05:37 Eos % (Auto) 0.8 % (0.9-2.9) L 07/27/22 05:37 Baso % (Auto) 0.2 % (0.2-1.0) 07/27/22 05:37 Neut # (Auto) 8.0 x10^3/uL (2.2-4.8) H 07/27/22 05:37 Lymph # (Auto) 1.3 X10^3/uL (1.3-2.9) 07/27/22 05:37 [place] # (Auto) 0.6 x10^3/uL (0.3-0.8) 07/27/22 05:37 Eos # (Auto) 0.1 x10^3/uL (0.0-0.2) 07/27/22 05:37 Baso # (Auto) 0.0 X10^3/uL (0.0-0.1) 07/27/22 05:37 Absolute Nucleated RBC 0.0 /100WBC 07/27/22 05:37 Total Counted 100 07/25/22 11:38 Neutrophils % (Manual) 98 % (39-76) H 07/25/22 11:38 Lymphocytes % (Manual) 2 % (13-43) L 07/25/22 11:38 Plt Morphology Comment Normal (NORMAL) 07/25/22 11:38 RBC Morphology Normal (NORMAL) 07/25/22 11:38 Sodium 140 mmol/L (136-145) 07/27/22 05:37 Corrected Sodium TNP 07/27/22 05:37 Potassium 3.7 mmol/L (3.5-5.1) 07/27/22 05:37 Chloride 108 mmol/L (98-107) H 07/27/22 05:37 Carbon Dioxide 28.8 mmol/L (21-32) 07/27/22 05:37 BUN 4 mg/dL (7-18) L 07/27/22 05:37 Creatinine 0.62 mg/dL (0.55-1.02) 07/27/22 05:37 Est GFR (MDRD) Af Amer > 60 (>60) 07/27/22 05:37 Est GFR (MDRD) Non-Af > 60 (>60) 07/27/22 05:37 Glucose 100 mg/dL (65-99) H 07/27/22 05:37 POC Glucose (mg/dL) 105 mg/dL (65-99) H 07/27/22 05:03 Calcium 8.2 mg/dL (8.5-10.1) L 07/27/22 05:37 Corrected Calcium 9.2 mg/dL (8.5-10.1) 07/27/22 05:37 Magnesium 1.9 mg/dL (2.0-2.9) L 07/26/22 05:15 Total Bilirubin 0.30 mg/dL (0.2-1.0) 07/27/22 05:37 AST 15 Units/L (15-37) 07/27/22 05:37 ALT 42 Units/L (12-78) 07/27/22 05:37 Alkaline Phosphatase 47 Units/L (46-116) 07/27/22 05:37 Total Protein 5.8 g/dL (6.4-8.2) L 07/27/22 05:37 Albumin 2.7 g/dL (3.4-5.0) L 07/27/22 05:37 Globulin 3.1 g/dL (2.5-4.5) 07/27/22 05:37 Albumin/Globulin Ratio 0.9 Ratio (1.1-2.1) L 07/27/22 05:37 Plan (1) Acute proctitis: Status: Acute Plan: IV antibiotics: Levaquin, Flagyl (2) Fecal impaction in rectum: Status: Acute Plan: General surgery following, s/p disimpaction (3) Type 2 diabetes mellitus: Status: Chronic
[2022-07-27] MEDS ORDERED: TUCKS MEDICATED PAD EXT PRN (15:35)
[2022-07-27] MEDS: AMBIEN PO PRN (20:53)
[2022-07-28] MEDS: D5 1/2 NS 1,000 ML 1,000 ML IV SCH ×2 (01:51→10:39)
[2022-07-28] MEDS: FLAGYL IV PREMIX 500 MG BAG 500 MG/100 ML BAG IV SCH (05:43)
[2022-07-28 06:07] LABS: BASOPHILS % (AUTO) 0.4 % (0.2-1.0); EOSINOPHILS # (AUTO) 0.2 x10^3/uL (0.0-0.2); HEMATOCRIT 34.9 % (36.0-47.0); HEMOGLOBIN 12.1 g/dL (12.0-16.0); LYMPHOCYTES # (AUTO) 1.7 X10^3/uL (1.3-2.9); LYMPHOCYTES % (AUTO) 25.7 % (21.0-51.0); MEAN CORPUSCULAR HEMOGLOBIN 31.8 pg (27.0-34.0); MEAN CORPUSCULAR HGB CONC 34.7 g/dL (33.0-35.0); MEAN CORPUSCULAR VOLUME 91.7 fL (80.0-100.0); MEAN PLATELET VOLUME 7.5 fL (7.4-11.0); MONOCYTES # (AUTO) 0.4 x10^3/uL (0.3-0.8); MONOCYTES % (AUTO) 6.6 % (0.0-13.0); NEUTROPHILS # (AUTO) 4.3 x10^3/uL (2.2-4.8); NEUTROPHILS % (AUTO) 64.3 % (42.0-75.0); PLATELET COUNT 259 X10^3/uL (150.0-450.0); RED CELL DISTRIBUTION WIDTH 12.9 % (11.6-16.5); WHITE BLOOD COUNT 6.7 X10^3/uL (3.6-10.0)
[2022-07-28 06:27] LABS: ALANINE AMINOTRANSFERASE 39 Units/L (12-78); ALBUMIN 3.1 g/dL (3.4-5.0); ALKALINE PHOSPHATASE 48 Units/L (46-116); ASPARTATE AMINO TRANSFERASE 12 Units/L (15-37); BLOOD UREA NITROGEN 4 mg/dL (7-18); CALCIUM 8.6 mg/dL (8.5-10.1); CARBON DIOXIDE 26.8 mmol/L (21-32); CHLORIDE 107 mmol/L (98-107); COR CA(FOR HYPOALB) 9.3 mg/dL (8.5-10.1); CREATININE 0.62 mg/dL (0.55-1.02); GLUCOSE 88 mg/dL (65-99); POTASSIUM 3.2 mmol/L (3.5-5.1); SODIUM 141 mmol/L (136-145); TOTAL PROTEIN 6.6 g/dL (6.4-8.2); eGFR NON BLACK RACES > 60 (>60)
[2022-07-28] MEDS: K-DUR TAB 20 MEQ PO PRN (06:37)
[2022-07-28 08:51] VITALS: BP 101/64
[2022-07-28] MEDS: LEVAQUIN PREMIX IV 750 MG 750 MG/150 ML BAG IV SCH (09:13)
--- NOTE | 2022-07-29 08:31 | W.DIS.FURT ---
Summary of Discharge Discharge Summary of Date Date of Exam: 07/28/22 Admission Date Date of Admission: 07/25/22 Admission Diagnosis Patient Problems (Updated 07/26/22 @ 13:03 by Shayne Griffith) Acute proctitis (Acute) K62.89 Fecal impaction in rectum (Acute) K56.41 Hospital Course: Pt is a 46 year old female past medical history of DMT2, admitted for fecal impaction and acute proctitis. Her hospital course included IVF D5 1/2 NS@ 125ml/h, IV antibiotics: IV Levaquin 750mg daily, IV Flagyl 500mg TID. General surgery-Dr Baumann following was consulted and patient had disimpaction under sedation that resolved symptoms. Labs/imaging: Wbc 6.7, Hgb 12.1, Plt 259, Na 141, K 3.2, Creatinine 0.62, Glucose 88. Diet was restarted and patient tolerated well. She responded well to treatment and was discharged in stable condition. Rx flagyl for proctitis. Instructed to follow up with pcp in 1 week and General Surgery outpatient. Vital Signs: Vital Signs (72 hours) 07/25/22 11:11 07/25/22 11:48 07/25/22 14:01 Temperature 98.1 F Pulse Rate 132 H Pulse Rate [Left] Respiratory Rate 20 18 20 Blood Pressure 112/77 Blood Pressure [Right Arm] O2 Sat by Pulse Oximetry 100 Oxygen Delivery Method Room Air 07/25/22 12:18 07/25/22 14:31 07/25/22 16:26 Temperature Pulse Rate Pulse Rate [Left] Respiratory Rate 20 20 20 Blood Pressure Blood Pressure [Right Arm] O2 Sat by Pulse Oximetry Oxygen Delivery Method 07/25/22 16:40 07/25/22 17:14 07/25/22 19:41 Temperature 99.5 F Pulse Rate Pulse Rate [Left] 108 H 101 H Respiratory Rate 18 20 Blood Pressure Blood Pressure [Right Arm] 120/75 108/66 O2 Sat by Pulse Oximetry 98 96 Oxygen Delivery Method Room Air Room Air Room Air 07/25/22 19:47 07/25/22 19:00 07/25/22 23:03 Temperature 98.7 F Pulse Rate Pulse Rate [Left] Respiratory Rate 18 Blood Pressure Blood Pressure [Right Arm] O2 Sat by Pulse Oximetry Oxygen Delivery Method Room Air 07/25/22 23:49 07/25/22 23:33 07/26/22 03:17 Temperature 98.9 F Pulse Rate Pulse Rate [Left] 92 H Respiratory Rate 18 12 18 Blood Pressure Blood Pressure [Right Arm] 109/58 O2 Sat by Pulse Oximetry 97 Oxygen Delivery Method Room Air 07/26/22 04:00 07/26/22 03:47 07/26/22 07:00 Temperature 99.6 F Pulse Rate Pulse Rate [Left] 96 H Respiratory Rate 20 20 Blood Pressure Blood Pressure [Right Arm] 98/50 O2 Sat by Pulse Oximetry 98 Oxygen Delivery Method Room Air Room Air 07/26/22 07:56 07/26/22 11:05 07/26/22 11:05 Temperature 99.3 F 98.1 F 98.1 F Pulse Rate Pulse Rate [Left] 116 H 116 H 88 Respiratory Rate 18 18 18 Blood Pressure Blood Pressure [Right Arm] 88/51 95/60 95/60 O2 Sat by Pulse Oximetry 96 98 98 Oxygen Delivery Method Room Air Room Air Room Air 07/26/22 11:20 07/26/22 11:35 07/26/22 13:09 Temperature 98 F 98.2 F Pulse Rate Pulse Rate [Left] 91 H 96 H Respiratory Rate 18 18 18 Blood Pressure Blood Pressure [Right Arm] 100/60 101/61 O2 Sat by Pulse Oximetry 100 99 Oxygen Delivery Method Room Air Room Air 07/26/22 13:39 07/26/22 16:00 07/26/22 19:00 Temperature 99.1 F Pulse Rate Pulse Rate [Left] 95 H Respiratory Rate 18 18 Blood Pressure Blood Pressure [Right Arm] 105/58 O2 Sat by Pulse Oximetry 99 Oxygen Delivery Method Room Air Room Air 07/26/22 19:45 07/26/22 20:00 07/26/22 20:45 Temperature 99.1 F Pulse Rate Pulse Rate [Left] 72 Respiratory Rate 18 20 18 Blood Pressure Blood Pressure [Right Arm] 106/63 O2 Sat by Pulse Oximetry 99 Oxygen Delivery Method Room Air 07/26/22 23:53 07/27/22 04:00 07/27/22 08:00 Temperature 98.4 F 98.8 F 98.9 F Pulse Rate Pulse Rate [Left] 95 H 87 89 Respiratory Rate 22 21 18 Blood Pressure Blood Pressure [Right Arm] 90/55 100/54 93/57 O2 Sat by Pulse Oximetry 97 100 100 Oxygen Delivery Method Room Air Room Air Room Air 07/27/22 07:00 07/27/22 12:00 07/27/22 16:00 Temperature 98.0 F 98.7 F Pulse Rate Pulse Rate [Left] 91 H 90 Respiratory Rate 18 18 Blood Pressure Blood Pressure [Right Arm] 98/58 101/67 O2 Sat by Pulse Oximetry 97 98 Oxygen Delivery Method Room Air Room Air Room Air 07/27/22 19:00 07/27/22 20:00 07/27/22 23:33 Temperature 98.5 F 98.2 F Pulse Rate Pulse Rate [Left] 73 97 H Respiratory Rate 20 18 Blood Pressure Blood Pressure [Right Arm] 99/57 88/51 O2 Sat by Pulse Oximetry 99 96 Oxygen Delivery Method Room Air Room Air Room Air 07/28/22 03:51 Temperature 98.1 F Pulse Rate Pulse Rate [Left] 97 H Respiratory Rate 20 Blood Pressure Blood Pressure [Right Arm] 96/59 O2 Sat by Pulse Oximetry 98 Oxygen Delivery Method Room Air Labs: Laboratory Last Values WBC 6.7 X10^3/uL (3.6-10.0) 07/28/22 05:42 RBC 3.80 X10^6/uL (3.5-5.4) 07/28/22 05:42 Hgb 12.1 g/dL (12.0-16.0) 07/28/22 05:42 Hct 34.9 % (36.0-47.0) L 07/28/22 05:42 MCV 91.7 fL (80.0-100.0) 07/28/22 05:42 MCH 31.8 pg (27.0-34.0) 07/28/22 05:42 MCHC 34.7 g/dL (33.0-35.0) 07/28/22 05:42 RDW 12.9 % (11.6-16.5) 07/28/22 05:42 Plt Count 259 X10^3/uL (150.0-450.0) 07/28/22 05:42 Plt Count Comment Adequate (ADEQUATE) 07/25/22 11:38 MPV 7.5 fL (7.4-11.0) 07/28/22 05:42 Neut % (Auto) 64.3 % (42.0-75.0) 07/28/22 05:42 Lymph % (Auto) 25.7 % (21.0-51.0) 07/28/22 05:42 [place] % (Auto) 6.6 % (0.0-13.0) 07/28/22 05:42 Eos % (Auto) 3.0 % (0.9-2.9) H 07/28/22 05:42 Baso % (Auto) 0.4 % (0.2-1.0) 07/28/22 05:42 Neut # (Auto) 4.3 x10^3/uL (2.2-4.8) 07/28/22 05:42 Lymph # (Auto) 1.7 X10^3/uL (1.3-2.9) 07/28/22 05:42 [place] # (Auto) 0.4 x10^3/uL (0.3-0.8) 07/28/22 05:42 Eos # (Auto) 0.2 x10^3/uL (0.0-0.2) 07/28/22 05:42 Baso # (Auto) 0.0 X10^3/uL (0.0-0.1) 07/28/22 05:42 Absolute Nucleated RBC 0.0 /100WBC 07/28/22 05:42 Total Counted 100 07/25/22 11:38 Neutrophils % (Manual) 98 % (39-76) H 07/25/22 11:38 Lymphocytes % (Manual) 2 % (13-43) L 07/25/22 11:38 Plt Morphology Comment Normal (NORMAL) 07/25/22 11:38 RBC Morphology Normal (NORMAL) 07/25/22 11:38 Sodium 141 mmol/L (136-145) 07/28/22 05:42 Corrected Sodium TNP 07/28/22 05:42 Potassium 3.2 mmol/L (3.5-5.1) L 07/28/22 05:42 Chloride 107 mmol/L (98-107) 07/28/22 05:42 Carbon Dioxide 26.8 mmol/L (21-32) 07/28/22 05:42 BUN 4 mg/dL (7-18) L 07/28/22 05:42 Creatinine 0.62 mg/dL (0.55-1.02) 07/28/22 05:42 Est GFR (MDRD) Af Amer > 60 (>60) 07/28/22 05:42 Est GFR (MDRD) Non-Af > 60 (>60) 07/28/22 05:42 Glucose 88 mg/dL (65-99) 07/28/22 05:42 POC Glucose (mg/dL) 87 mg/dL (65-99) 07/28/22 05:41 Calcium 8.6 mg/dL (8.5-10.1) 07/28/22 05:42 Corrected Calcium 9.3 mg/dL (8.5-10.1) 07/28/22 05:42 Magnesium 2.0 mg/dL (2.0-2.9) 07/28/22 05:42 Total Bilirubin 0.20 mg/dL (0.2-1.0) 07/28/22 05:42 AST 12 Units/L (15-37) L 07/28/22 05:42 ALT 39 Units/L (12-78) 07/28/22 05:42 Alkaline Phosphatase 48 Units/L (46-116) 07/28/22 05:42 Total Protein 6.6 g/dL (6.4-8.2) 07/28/22 05:42 Albumin 3.1 g/dL (3.4-5.0) L 07/28/22 05:42 Globulin 3.5 g/dL (2.5-4.5) 07/28/22 05:42 Albumin/Globulin Ratio 0.9 Ratio (1.1-2.1) L 07/28/22 05:42 Reason For Visit: FECAL IMPACTION, PROCTITIS, PAIN, LEUKOCYTOSIS Discharge Date Discharge Date: 07/28/22 Discharge Diagnosis All Active Problems (Updated 07/26/22 @ 13:03 by Shayne Griffith) Type 2 diabetes mellitus (Chronic) Acute proctitis (Acute) Fecal impaction in rectum (Acute) Plan of Treatment: Continue with present treatment and follow up plan. Pt is to keep follow up appointment as instructed and take medications as ordered. Discharge Medications Discharge Medications: No Known Drug Allergies Allergy (Verified 11/16/20 10:22) CONTINUE taking the following medications duloxetine 60 mg capsule,delayed release (Cymbalta) 60 mg PO HS PRN 07/26/22 [History] eszopiclone 3 mg tablet 1 tab PO QPM PRN 07/26/22 [History] semaglutide 1 mg/dose (4 mg/3 mL) subcutaneous pen injector (Ozempic) 1 mg subcut QWEEK 07/26/22 [History] New Prescriptions metronidazole 500 mg tablet 500 mg PO TID 10 days #30 tabs 07/28/22 [Rx] Discharge Disposition Assessment: Stable no acute distress noted at discharge. Discharge Plan Discharge Plan Hospital Course: Pt is a 46 year old female past medical history of DMT2, admitted for fecal impaction and acute proctitis. Her hospital course included IVF D5 1/2 NS@ 125ml/h, IV antibiotics: IV Levaquin 750mg daily, IV Flagyl 500mg TID. General surgery-Dr Pastor rasmussen was consulted and patient had disimpaction under sedation that resolved symptoms. Labs/imaging: Wbc 6.7, Hgb 12.1, Plt 259, Na 141, K 3.2, Creatinine 0.62, Glucose 88. Diet was restarted and patient tolerated well. She responded well to treatment and was discharged in stable condition. Rx flagyl for proctitis. Instructed to follow up with pcp in 1 week and General Surgery outpatient. Patient Disposition: HOME, SELF-CARE Condition: Stable Health Concerns: Post Hospitalization: new medications and changes needed to prevent readmission or further decline. Pt educated and given instructions on all concerns. Care Plan Goals: Problem: Pain/Alteration in Comfort Goal: Improve/ Resolve Pain; Achieve Pain Tolerance Instructions: Take pain medications as prescribed. Contact your primary care provider if your pain is unrelieved or worsens. Follow up with primary care provider as directed. Plan of Treatment: Continue with present treatment and follow up plan. Pt is to keep follow up appointment as instructed and take medications as ordered. Assessment: Stable no acute distress noted at discharge. Prescriptions: New metronidazole 500 mg tablet 500 mg PO TID 10 Days Qty: 30 0RF Continued duloxetine [Cymbalta] 60 mg Capsule,Delayed Release(Dr/Ec) 60 mg PO HS PRN eszopiclone 3 mg tablet 1 tab PO QPM PRN Ozempic 1 mg/dose (4 mg/3 mL) pen injector 1 mg SUBCUT QWEEK Label Comments: [NO ORIGINAL SIG] Rx Instructions: takes on Follow ups/Referrals Follow ups/Referrals: TL JONES [Primary Care Provider] - 08/01/22 10:30 am DAVID JONES [STAFF PHYSICIAN] - 08/10/22 1:00 pm Instructions Instructions: Colonoscopy, Adult, [id number], Constipation, Adult, [id number], Fecal Impaction, Proctitis Stand Alone Forms: Excuse From Work or School
== END 2022-07-28 10:10 | disposition home or self-care (01) | DRG 390 ==
LOC: SUPCPDRO → ER 11:00 → MED/SURG 11:00
PROVIDERS: ADMIT Family Medicine; ATTEND Family Medicine
DX: K62.89 Other specified diseases of anus and rectum; E11.65 Type 2 diabetes mellitus with hyperglycemia; K56.41 Fecal impaction; R10.2 Pelvic and perineal pain